=== PATIENT | male | born 1980 | race African-American/Black ===

== ENCOUNTER 2018-02-20 06:04 | Emergency (ER) | payer SELFPAY ==
[2018-02-20 06:07] VITALS: BP 147/95; PULSE 91; RESP 16; TEMP 97.1; O2SAT 100
--- NOTE | 2018-02-20 07:00 | RADRPT ---
EXAM DATE: 02/20/2018 6:55 AM EDT AGE/SEX: 37 years / Male INDICATIONS: Chest pain. CLINICAL DATA: This is the patient's initial encounter. Patient reports that signs and symptoms have been present for 1 day and indicates a pain score of 6/10. MEDICAL/SURGICAL HISTORY: None. None. COMPARISON: No prior exams available for comparison. FINDINGS: A single AP view of the chest demonstrates the lungs to be symmetrically aerated without evidence of mass, infiltrate or effusion. The cardiomediastinal contours are unremarkable. Osseous structures a re intact. CONCLUSION: No active disease. Electronically signed by: Dexter Dubon MD 02/20/2018 6:59 AM EDT
[2018-02-20 07:01] LABS: AUTOMATED NEUTROPHIL # 8.5 TH/MM3 (1.8-7.7); BASOPHIL # 0.1 TH/MM3 (0-0.2); BASOPHIL % 0.5 % (0.0-2.0); EOSINOPHIL % 0.4 % (0.0-4.0); HEMATOCRIT 49.9 % (39.0-51.0); HEMOGLOBIN 16.8 GM/DL (13.0-17.0); LYMPH % 16.6 % (9.0-44.0); LYMPHOCYTE # 1.9 TH/MM3 (1.0-4.8); MEAN CELL VOLUME 86.2 FL (80.0-100.0); MEAN CORPUSCULAR HEMOGLOBIN 28.9 PG (27.0-34.0); MEAN CORPUSCULAR HGB CONC 33.6 % (32.0-36.0); MONO % 9.1 % (0.0-8.0); MONOCYTE # 1.1 TH/MM3 (0-0.9); NEUT % 73.4 % (16.0-70.0); PLATELET COUNT 317 TH/MM3 (150-450); RED BLOOD COUNT 5.79 MIL/MM3 (4.50-5.90); RED CELL DISTRIBUTION WIDTH 14.6 % (11.6-17.2); WHITE BLOOD COUNT 11.6 TH/MM3 (4.0-11.0)
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
[2018-02-20] MEDS ORDERED: ASPIRIN 81 MG CHEW TAB CHEW ONE (07:30)
[2018-02-20] MEDS ORDERED: MORPHINE SULFATE 4 MG/ML INJ IV PUSH ONE (07:30)
[2018-02-20] MEDS ORDERED: ONDANSETRON ODT 4 MG TAB PO ONE (07:30)
[2018-02-20] MEDS ORDERED: NITROGLYCERIN 2% OINT 1 GM PACKET TOPICAL ONE (07:30)
[2018-02-20 07:31] LABS: TROPONIN I LESS THAN 0.02 NG/ML (0.02-0.05)
[2018-02-20 07:37] LABS: BICARBONATE 21.5 MEQ/L (21.0-32.0); BLOOD UREA NITROGEN 12 MG/DL (7-18); CHLORIDE 107 MEQ/L (98-107); CREATININE 1.38 MG/DL (0.60-1.30); GLOMERULAR FILTRATION RATE 71 ML/MIN (>89); GLUCOSE,RANDOM 97 MG/DL (74-106); SODIUM (NA) 138 MEQ/L (136-145)
[2018-02-20 07:42] VITALS: O2SAT 99
[2018-02-20] MEDS ORDERED: SODIUM CHLOR 0.9% 1000 ML INJ 1,000 ML IV ONE ×2 (07:45)
--- NOTE | 2018-02-20 14:49 | EKG ---
Date Performed: 02/20/2018 Time Performed: 05:22:05 PTAGE: 37 years EKG: Sinus rhythm LEFT VENTRICULAR HYPERTROPHY AND ST-T CHANGE ABNORMAL ECG PREVIOUS TRACING : 02/27/2015 10.08 Since the previous tracing, no significant change noted DOCTOR: Damion Hanson Interpretating Date/Time 02/20/2018 14:49:06
== END 2018-02-20 08:35 | disposition left against medical advice (07) ==
LOC: NEPE 06:04
DX: M62.82 Rhabdomyolysis (principal); F14.90 Cocaine use, unspecified, uncomplicated; R94.31 Abnormal electrocardiogram [ECG] [EKG]; I10 Essential (primary) hypertension; F17.200 Nicotine dependence, unspecified, uncomplicated; Z86.79 Personal history of other diseases of the circulatory system; Z87.448 Personal history of other diseases of urinary system; Z86.59 Personal history of other mental and behavioral disorders
CPT/HCPCS: 71045; 80048; 80307; 82550; 82552; 84484; 85025; 93005; 99285; J7030